=== PATIENT | female | born 1985 | race African-American/Black ===

== ENCOUNTER 2017-01-27 11:58 | Emergency (ER) | payer BC ==
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
[~2017-01-27 11:58] MED LIST: ABILIFY; FLEXERIL10 MG PO; LAMICTAL; NAPROSYN500 MG PO; TYLENOL #3 PO; VYVANSE70 MG PO
[2017-01-27] MEDS ORDERED: CONCERTA18 MG (11:59)
[2017-01-27] MEDS ORDERED: LITHIUM (11:59)
== END 2017-01-27 13:06 | disposition home or self-care (01) ==
LOC: SED 11:58
DX: S46.812A Strain of other muscles, fascia and tendons at shoulder and upper arm level, left arm, initial encounter (principal); F17.210 Nicotine dependence, cigarettes, uncomplicated; Z98.51 Tubal ligation status; Z79.899 Other long term (current) drug therapy; V43.52XA Car driver injured in collision with other type car in traffic accident, initial encounter
CPT/HCPCS: 72040; 73030; 96372; 99284; J1885